=== PATIENT | female | born 1985 | race Caucasian/White ===

== ENCOUNTER 2018-10-06 14:01 | Emergency (ER) | payer OTHER ==
[~2018-10-06] VITALS: Ht 154.9 cm; Wt 52.3 kg
[2018-10-06 14:52] VITALS: BP 109/72; PULSE 84; RESP 20; Ht 154.9 cm; Wt 52.3 kg
[2018-10-06] MEDS ORDERED: ONDA4TAB14 PO (15:53)
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
== END 2018-10-06 16:20 | disposition home or self-care (01) ==
LOC: E/R 14:01
DX: R42 Dizziness and giddiness (principal); R11.0 Nausea
CPT/HCPCS: 99283